=== PATIENT | female | born 1960 | race African-American/Black ===

== ENCOUNTER 2016-10-30 07:16 | Emergency (ER) | payer MEDICAID ==
[2016-10-30 07:46] VITALS: BMI 41.4
[2016-10-30] MEDS ORDERED: ONDANSETRON HCL 4 MG/2 ML VIAL IV ONE (08:04)
[2016-10-30] MEDS ORDERED: NS 1,000 ML IV ONE (08:04)
[2016-10-30] MEDS ORDERED: HYDROmorphone 1 MG INJECTION IV PRN (08:04)
[2016-10-30] MEDS ORDERED: ONDANSETRON HCL 4 MG/2 ML VIAL IV PRN (08:04)
[2016-10-30] MEDS: HYDROmorphone 1 MG INJECTION IV ONE ×2 (08:15→08:24)
--- NOTE | 2016-10-30 08:25 | EDPRACDOC ---
- General Information Chief Complaint: Abdominal Pain Stated Complaint: LOWER LT ABD PAIN Time Seen by Provider: 10/30/16 08:03 Information Source: Patient Mode Of Arrival: Car Home Medications: Home Medications Metformin HCl [Glucophage] 1,000 mg PO BID 01/02/14 Amlodipine [Norvasc] 10 mg PO DAILY #30 tab 11/22/14 Albuterol Sulfate 1.25 mg NEB Q6H PRN #1 box 07/07/15 Albuterol Sulfate [Proair Hfa] 2 puff INH Q4H PRN #1 inhaler 07/07/15 Aripiprazole [Abilify] 5 mg PO DAILY 10/30/16 Carvedilol 25 mg PO BID 10/30/16 Ciprofloxacin HCl [Cipro] 500 mg PO BID #20 tab 10/30/16 CloNIDine (Antihypertensive) [Catapres] 0.2 mg PO BID 10/30/16 Gabapentin [Neurontin] 300 mg PO TID 10/30/16 Glipizide 5 mg PO BID 10/30/16 Ketorolac Tromethamine 10 mg PO Q6H PRN #20 tab 10/30/16 Lisinopril/Hydrochlorothiazide [Lisinopril-Hctz 20-12.5 mg Tab] 1 tab PO DAILY 10/30/16 Metronidazole [Flagyl] 500 mg PO BID #28 tab 10/30/16 Allergies/Adverse Reactions: Allergies Allergy/AdvReac Type Severity Reaction Status Date / Time No Known Allergies Allergy Verified 07/07/15 08:07 - History of Present Illness Onset: 2 days Pain Location: Reports: Periumbilical Pain Context: Reports: Spontaneous Pain Severity: Mild Pain Quality: Reports: Aching : No Female Abdominal History: Reports: Abdominal Surgery. Denies: UTI Modifying Factors: improves with: Nothing Female Associated Signs & Symptoms: Reports: Nausea Oral Intake: Normal Urinary Output: Normal ED Past Medical History - History Reviewed Yes Nurses notes reviewed and agree except as marked - Patient Medical History Neurological History: Denies: Cerebrovascular Accident, Seizures, Dementia Cardiac History: Reports: Hypertension. Denies: Congestive Heart Failure Respiratory History: Reports: Asthma, COPD. Denies: Pneumonia GI/ History: Denies: Renal Disease, Renal Failure, Urinary Tract Infection, Kidney Stones, Ulcer Musculoskeletal History: Denies: Arthritis, Rheumatoid Arthritis, Osteoarthritis Psychological History: Reports: Depression, Anxiety, Bipolar Disorder Systemic History: Reports: Cancer, Diabetes. Denies: Hyperthyroidism, Hypothyroidism Surgical History: Reports: Hysterectomy (PT STATES "IT WAS AROUND 20 YEARS AGO. ") - Family Medical History Reports: Hypertension (MOM, SISTERS, BROTHERS), Diabetes (2 BROTHERS, SISTER), Cancer ([facility]), Stroke (BROTHER), Cardiac Disorders (MOM & SISTER ) - Social Medical History Smoking Status: Heavy tobacco smoker (5 or more cigarettes/day or daily pipe/ cigar) EDM Review of Systems - Review of Systems ROS Negative Except as Marked: Yes All systems reviewed and were negative except as marked - Physical Exam Constitutional: Alert (Awake), No apparent distress Oriented to: Time, Person, Place Last recorded Vital Signs: Last Vital Signs Temp 98.4 F 10/30/16 07:43 Pulse 65 10/30/16 09:15 Resp 18 10/30/16 09:15 BP 179/88 10/30/16 09:15 Pulse Ox 95 10/30/16 09:15 Oxygen Pulse Oxygen Saturation 95 O2 Device Room Air Oxygen Flow Rate Fraction of Inspired Oxygen ( FIO2) - HEENT Head: Normal ( normocephalic) Eye Exam: Normal (PERRL, EOMI, Sclera white) Oropharynx: Normal (Pharynx:Moist without exudate,Gums-no swelling) Tympanic Membrane: Normal ENT EAC: Normal TMJ: Normal Nose: No Symptoms Reported (septum midline) Neck: Normal (FROM, trachea at midline) - Respiratory/Cardiovascular Respiratory: Normal - CTA (BBS clear to auscultation without adventitious sounds ) Cardiovascular: Normal (RRR without murmur, gallop or rub) - GI Auscultation: Normal (NABS) Palpation: Normal (Soft,No rebound or guarding, non distended) Tenderness: Non tender Wang's Sign: Negative - Musculoskeletal Back: Normal (Non-Tender) Extremities: Normal (Normal tone, Pulses 2+ No cyanosis or edema, FROM) - Integumentary Skin: Normal, Warm, Dry Lymphatics: Normal (no adenopathy) - Neurologic Memory Impaired: Normal Motor Function: Normal (Normal tone, Pulses 2+ No cyanosis or edema, FROM) Cranial Nerve: Normal (CN II-X11 intact sensation, strength 5/5) Cerebellar: Normal Mood Description: Normal Perception: Normal - Results 10/30/16 08:15 10/30/16 08:15 WBC 11.0 xk/uL (3.8-10.8) H 10/30/16 08:15 RBC 5.25 xM/uL (4.20-5.40) 10/30/16 08:15 Hgb 15.3 g/dL (12.0-16.0) 10/30/16 08:15 Hct 45.0 % (36-47) 10/30/16 08:15 MCV 86 fL (81-99) 10/30/16 08:15 MCH 29.2 pg (27-32) 10/30/16 08:15 MCHC 34.1 g/dl (33-36) 10/30/16 08:15 RDW 13.3 % (11.5-14.5) 10/30/16 08:15 Plt Count 283 xk/uL (130-400) 10/30/16 08:15 MPV 7.9 fL (7.4-10.4) 10/30/16 08:15 Neut % (Auto) 67.3 % (45-76) 10/30/16 08:15 Lymph % (Auto) 24.5 % (17-44) 10/30/16 08:15 [place] % (Auto) 7.3 % (3-10) 10/30/16 08:15 Eos % (Auto) 0.7 % (0-5) 10/30/16 08:15 Baso % (Auto) 0.2 % (0-2) 10/30/16 08:15 Absolute Neuts (auto) 7.37 xk/uL (1.7-8.2) 10/30/16 08:15 Absolute Lymphs (auto) 2.64 xk/uL (0.65-4.75) 10/30/16 08:15 Sodium 136 mEq/L (137-146) L 10/30/16 08:15 Potassium 3.7 mEq/L (3.5-5.1) 10/30/16 08:15 Chloride 100 mEq/L (98-107) 10/30/16 08:15 Carbon Dioxide 27 mMOL/L (22-33) 10/30/16 08:15 Anion Gap 13 mEq/L (8-16) 10/30/16 08:15 BUN 14 MG/DL (7-17) 10/30/16 08:15 Creatinine 1.00 MG/DL (0.52-1.04) 10/30/16 08:15 Estimated GFR (MDRD) > 60 mL/min (>=60) 10/30/16 08:15 Glucose 165 MG/DL (70-99) H 10/30/16 08:15 Calculated Osmolality 267 MOs/Kg (270-290) L 10/30/16 08:15 Calcium 9.5 MG/DL (8.4-10.2) 10/30/16 08:15 Corrected Calcium 9.7 MG/DL (8.4-10.2) 10/30/16 08:15 Total Bilirubin 0.8 MG/DL (0.2-1.3) 10/30/16 08:15 AST 19 IU/L (14-36) 10/30/16 08:15 ALT 38 IU/L (9-52) 10/30/16 08:15 Alkaline Phosphatase 89 IU/L (38-126) 10/30/16 08:15 Total Protein 7.1 G/DL (6.3-8.2) 10/30/16 08:15 Albumin 3.8 G/DL (3.5-5.0) 10/30/16 08:15 Lipase 46 U/L (23-300) 10/30/16 08:15 Urine Color Yellow 10/30/16 10:52 Urine Clarity Clear 10/30/16 10:52 Urine pH 5.0 (5.0-8.0) 10/30/16 10:52 Ur Specific [place] 1.005 (1.003-1.035) 10/30/16 10:52 Urine Protein Neg (NEG/TRACE) 10/30/16 10:52 Urine Glucose (UA) Neg (NEGATIVE) 10/30/16 10:52 Urine Ketones Neg (NEGATIVE) 10/30/16 10:52 Urine Occult Blood Neg (NEG/TRACE) 10/30/16 10:52 Urine Nitrite Neg (NEGATIVE) 10/30/16 10:52 Urine Bilirubin Neg (NEGATIVE) 10/30/16 10:52 Urine Urobilinogen <2.0 MG/DL (0-1) 10/30/16 10:52 Ur Leukocyte Esterase Neg (NEGATIVE) 10/30/16 10:52 Urine RBC 0-2 (0-5) 10/30/16 10:52 Urine WBC 0-2 (0-5) 10/30/16 10:52 Ur Epithelial Cells 2+ 10/30/16 10:52 Urine Bacteria Few (NEG/FEW) 10/30/16 10:52 Urine Mucus Occ (NEG/OCC) 10/30/16 10:52 Lab Results 10/30/16 10/30/16 10/30/16 10:52 08:15 08:15 WBC 11.0 H RBC 5.25 Hgb 15.3 Hct 45.0 MCV 86 MCH 29.2 MCHC 34.1 RDW 13.3 Plt Count 283 MPV 7.9 Neut % (Auto) 67.3 Lymph % (Auto) 24.5 [place] % (Auto) 7.3 Eos % (Auto) 0.7 Baso % (Auto) 0.2 Absolute Neuts (auto) 7.37 Absolute Lymphs (auto) 2.64 Sodium 136 L Potassium 3.7 Chloride 100 Carbon Dioxide 27 Anion Gap 13 BUN 14 Creatinine 1.00 Estimated GFR (MDRD) > 60 Glucose 165 H Calculated Osmolality 267 L Calcium 9.5 Corrected Calcium 9.7 Total Bilirubin 0.8 AST 19 ALT 38 Alkaline Phosphatase 89 Total Protein 7.1 Albumin 3.8 Lipase 46 Urine Color Yellow Urine Clarity Clear Urine pH 5.0 Ur Specific [place] 1.005 Urine Protein Neg Urine Glucose (UA) Neg Urine Ketones Neg Urine Occult Blood Neg Urine Nitrite Neg Urine Bilirubin Neg Urine Urobilinogen <2.0 Ur Leukocyte Esterase Neg Urine RBC 0-2 Urine WBC 0-2 Ur Epithelial Cells 2+ Urine Bacteria Few Urine Mucus Occ - EKG EKG #1 [place]: Normal Rhythm: NSR Block: None Hypertrophy: None ST: Normal - Additional Information URINE COLLECTION DELAY OF SEVERAL HOURS Decision Time to Discharge: 11:20 - Departure Yes I personally saw and evaluated the patient. Disposition: Home Condition: Good Final Diagnosis: Abdominal pain, Diverticulitis Instructions: Acute Abdominal Pain (ED) Education/Counseling Given To: Patient Education/Counseling Given Regarding: Diagnosis, Treatment, Prognosis Referrals: Megan Olivo, [employer] [Primary Care Provider] - One Week Prescriptions: New Ketorolac Tromethamine 10 mg PO Q6H PRN #20 tab PRN Reason: Pain Ciprofloxacin HCl [Cipro] 500 mg PO BID #20 tab Metronidazole [Flagyl] 500 mg PO BID #28 tab No Action Metformin HCl [Glucophage] 1,000 mg PO BID Amlodipine [Norvasc] 10 mg PO DAILY #30 tab Albuterol Sulfate 1.25 mg NEB Q6H PRN #1 box PRN Reason: Dyspnea Albuterol Sulfate [Proair Hfa] 2 puff INH Q4H PRN #1 inhaler PRN Reason: Dyspnea Lisinopril/Hydrochlorothiazide [Lisinopril-Hctz 20-12.5 mg Tab] 1 tab PO DAILY Glipizide 5 mg PO BID Gabapentin [Neurontin] 300 mg PO TID Carvedilol 25 mg PO BID Aripiprazole [Abilify] 5 mg PO DAILY CloNIDine (Antihypertensive) [Catapres] 0.2 mg PO BID
[2016-10-30 08:32] LABS: AUTOMATED BASOPHIL 0.2 % (0-2); AUTOMATED EOSINOPHIL 0.7 % (0-5); AUTOMATED LYMPH 24.5 % (17-44); AUTOMATED MONOCYTE 7.3 % (3-10); AUTOMATED NEUTROPHIL 67.3 % (45-76); MPV 7.9 fL (7.4-10.4)
[2016-10-30 08:50] LABS: BLOOD UREA NITROGEN 14 MG/DL (7-17); CALC CORRECTED 9.7 MG/DL (8.4-10.2); CALCIUM 9.5 MG/DL (8.4-10.2); CALCULATED OSMOLALITY 267 MOs/Kg (270-290); CHLORIDE 100 mEq/L (98-107); GLUCOSE 165 MG/DL (70-99); SODIUM LEVEL 136 mEq/L (137-146); TOTAL PROTEIN 7.1 G/DL (6.3-8.2)
[2016-10-30] MEDS ORDERED: Pharmacy Review for Metformin - IV Contrast Given SCH (09:00)
--- NOTE | 2016-10-30 09:45 | DIRPT ---
CLINICAL DATA: Left lower quadrant pain for 2 days EXAM: CT ABDOMEN AND PELVIS WITH CONTRAST TECHNIQUE: Multidetector CT imaging of the abdomen and pelvis was performed using the standard protocol following bolus administration of intravenous contrast. CONTRAST: 100 cc Isovue 370. COMPARISON: None. FINDINGS: Lower chest: Unremarkable. Hepatobiliary: Small area of low attenuation in the anterior liver, adjacent to the falciform ligament, is in a characteristic location for focal fatty change. No focal abnormality within the liver parenchyma. There is no evidence for gallstones, gallbladder wall thickening, or pericholecystic fluid. No intrahepatic or extrahepatic biliary dilation. Pancreas: No focal mass lesion. No dilatation of the main duct. No intraparenchymal cyst. No peripancreatic edema. Spleen: No splenomegaly. No focal mass lesion. Adrenals/Urinary Tract: No adrenal nodule or mass. Kidneys are normal in appearance. No evidence for hydroureter. The urinary bladder appears normal for the degree of distention. Stomach/Bowel: Stomach is nondistended. No gastric wall thickening. No evidence of outlet obstruction. Duodenum is normally positioned as is the ligament of [place]. No small bowel wall thickening. No small bowel dilatation. The terminal ileum is normal. The appendix is not visualized, but there is no edema or inflammation in the region of the cecum. Diverticuli are seen scattered along the entire length of the colon without CT findings of diverticulitis. 3 separate areas of pericolonic edema/ inflammation are identified. The most proximal of these is in the mid descending segment (see image 50 series 3). A second area of pericolonic edema/ inflammation is seen at the junction of the descending and sigmoid segments (see image 63 series 3). The most distal of the 3 is identified in the mid sigmoid colon (see image 73 series 3). No evidence for extraluminal gas. No evidence for abscess within the sigmoid mesocolon. Vascular/Lymphatic: There is abdominal aortic atherosclerosis without aneurysm. There is no gastrohepatic or hepatoduodenal ligament lymphadenopathy. No intraperitoneal or retroperitoneal lymphadenopathy. No pelvic sidewall lymphadenopathy. Reproductive: Uterus is surgically absent. There is no adnexal mass. Other: No intraperitoneal free fluid. Musculoskeletal: Small left paraumbilical hernia contains only omental fat. Bone windows reveal no worrisome lytic or sclerotic osseous lesions. IMPRESSION: Three separate areas of pericolonic edema/ inflammation in the left colon found on a background of moderate left colonic diverticulosis. Imaging features are most suggestive of multifocal diverticulitis without perforation or abscess. The area in the mid sigmoid colon has the most prominent wall thickening and as colorectal neoplasm can present with similar CT imaging features, correlation with colorectal cancer screening history recommended. Electronically Signed By: Praveen Watts M.D. On: 10/30/2016 09:42
[2016-10-30 11:17] LABS: LEUKOCYTES/URINE NEG (NEGATIVE); NITRITE/URINE NEG (NEGATIVE); RBC/URINE 0-2 (0-5); URINE OCCULT BLOOD NEG (NEG/TRACE); WBC/URINE 0-2 (0-5)
[2016-10-30 11:22] VITALS: BP 168/80; PULSE 71
[2016-10-30 11:25] VITALS: TEMP 98.7
== END 2016-10-30 11:23 | disposition home or self-care (01) ==
LOC: ED 07:16
DX: K57.92 Diverticulitis of intestine, part unspecified, without perforation or abscess without bleeding (principal)
CPT/HCPCS: 36415; 74177; 80053; 81001; 83690; 85025; 96361; 96374; 96375; 99283; A9698; J1170; J2405